=== PATIENT | female | born 1980 | race Caucasian/White ===

== ENCOUNTER 2016-10-17 20:48 | Emergency (ER) | payer BC ==
[2016-10-17 20:55] VITALS: BP 135/71
[2016-10-17] MEDS ORDERED: Prochlorperazine 10 MG/2 ML SDV IVPUSH ONE (21:13)
[2016-10-17] MEDS ORDERED: Sodium Chloride 0.9% 10 ML Syringe FLUSH PRN (21:13)
[2016-10-17] MEDS ORDERED: Ketorolac 30 MG/ML SDV IVPUSH ONE (21:13)
[2016-10-17] MEDS ORDERED: diphenhydrAMINE 50 MG/ML SDV IVPUSH ONE (21:14)
--- NOTE | 2016-10-17 21:19 | EDM.PDOC ---
ED HPI GENERAL MEDICAL PROBLEM - General Chief Complaint: Headache Stated Complaint: MIGRAINE Time Seen by Provider: 10/17/16 20:55 Source of Information: Reports: Patient History Limitations: Reports: No Limitations - History of Present Illness INITIAL COMMENTS - FREE TEXT/NARRATIVE: The patient presents with a headache. She has pain to the frontal area. She has light sensitivity. She has some tingling to her right hand. She had a history of migraines in the past. She has not had one for about 7 years. She denies nausea or vomiting. This started at 10am. Onset: Today Duration: Hour(s): (10 am this morning) Location: Reports: Head Quality: Reports: Sharp Severity: Moderate Improves with: Reports: None Worsens with: Reports: None Associated Symptoms: Reports: No Other Symptoms Headache Pain Score (Numeric/FACES): 8 - Related Data Allergies Allergy/AdvReac Type Severity Reaction Status Date / Time No Known Allergies Allergy Verified 10/17/16 20:55 Home Meds: Home Meds Escitalopram Oxalate [Lexapro] 20 mg PO DAILY 10/17/16 [History] Past Medical History Endocrine/Metabolic History: Reports: Other (See Below) Other Endocrine/Metabolic History: "Dr. Shaffer is looking into pituitary issues " Social & Family History - Tobacco Use Smoking Status *Q: Never Smoker Second Hand Smoke Exposure: No - Caffeine Use Caffeine Use: Reports: Coffee, Soda - Alcohol Use Days Per Week of Alcohol Use: 0 - Recreational Drug Use Recreational Drug Use: No ED ROS GENERAL - Review of Systems Review Of Systems: See Below Constitutional: Reports: No Symptoms HEENT: Reports: No Symptoms Respiratory: Reports: No Symptoms Cardiovascular: Reports: No Symptoms Endocrine: Reports: No Symptoms GI/Abdominal: Reports: No Symptoms : Reports: No Symptoms Musculoskeletal: Reports: No Symptoms Skin: Reports: No Symptoms Neurological: Reports: Headache, Tingling (right arm) - Physical Exam Exam: See Below Exam Limited By: No Limitations General Appearance: Alert, No Apparent Distress Ears: Normal External Exam Nose: Normal Inspection Head Exam: Atraumatic, Normocephalic Neck: Normal Inspection Respiratory/Chest: No Respiratory Distress, Lungs Clear, Normal Breath Sounds Cardiovascular: Regular Rate, Rhythm, No Edema, No Murmur GI/Abdominal: Soft, Non-Tender, No Organomegaly Neuro Exam (Abbreviated): Alert, Oriented, No Motor/Sensory Deficits Course - Vital Signs Last Recorded V/S: Last Vital Signs Temp 97.7 F 10/17/16 20:52 Pulse 69 10/17/16 20:52 Resp 18 10/17/16 20:52 BP 135/71 10/17/16 20:52 Pulse Ox 97 10/17/16 20:52 - Orders/Labs/Meds Orders: Active Orders 24 hr Category Date Time Status Peripheral IV Care [RC] . DIRECTED Care 10/17/16 21:13 Active Sodium Chloride 0.9% [Saline Flush] Med 10/17/16 21:13 Active 10 ml FLUSH ASDIRECTED PRN Peripheral IV Insertion Adult [OM.PC] Routine Oth 10/17/16 21:13 Ordered Medication Orders Sodium Chloride (Saline Flush) 10 ml FLUSH ASDIRECTED PRN PRN Reason: Keep Vein Open Last Admin: 10/17/16 21:34 Dose: 10 ml Meds: Medications Generic Name Dose Route Start Last Admin Trade Name Freq PRN Reason Stop Dose Admin Sodium Chloride 10 ml 10/17/16 21:13 10/17/16 21:34 Saline Flush FLUSH 10 ml ASDIRECTED PRN Administration Keep Vein Open Discontinued Medications Generic Name Dose Route Start Last Admin Trade Name Freq PRN Reason Stop Dose Admin Diphenhydramine HCl 50 mg 10/17/16 21:14 10/17/16 21:34 Benadryl IVPUSH 10/17/16 21:15 50 mg ONETIME ONE Administration Ketorolac Tromethamine 30 mg 10/17/16 21:13 10/17/16 21:37 Toradol IVPUSH 10/17/16 21:14 30 mg ONETIME ONE Administration Prochlorperazine Edisylate 10 mg 10/17/16 21:13 10/17/16 21:31 Compazine IVPUSH 10/17/16 21:14 10 mg ONETIME ONE Administration - Re-Assessments/Exams Free Text/Narrative Re-Assessment/Exam: 10/17/16 21:19 I have ordered an IV saline lock, compazine 10mg IV, toradol 30mg IV and benadryl 50mg IV. 10/17/16 21:58 She feels much better. I will discharge her home. Departure - Departure Time of Disposition: 22:00 Disposition: Home, Self-Care 01 Condition: good Clinical Impression: Migraine - Discharge Information Referrals: Daly Davis [employer] HEL[employer] [Primary Care Provider] - Forms: ED Department Discharge Additional Instructions: Good home and rest. Please return if you are worse. - My Orders Last 24 Hours: My Active Orders 10/17/16 21:13 Peripheral IV Care [RC] . DIRECTED Sodium Chloride 0.9% [Saline Flush] 10 ml FLUSH ASDIRECTED PRN Peripheral IV Insertion Adult [OM.PC] Routine - Assessment/Plan Last 24 Hours: My Active Orders 10/17/16 21:13 Peripheral IV Care [RC] . DIRECTED Sodium Chloride 0.9% [Saline Flush] 10 ml FLUSH ASDIRECTED PRN Peripheral IV Insertion Adult [OM.PC] Routine
== END 2016-10-17 22:11 | disposition home or self-care (01) ==
LOC: JD.ED 20:48
DX: G43.909 Migraine, unspecified, not intractable, without status migrainosus (principal)
CPT/HCPCS: 96374; 96375; 99283; J0780; J1200; J1885; J7050; 99284

== ENCOUNTER 2017-11-05 06:45 | Day surgery (SDC) | payer BC ==
[~2017-11-05 06:45] MED LIST: Lidocaine 1%/Sod Bicarbonate in NS 8.4% 1 ML Syringe IDERM PRN; Sodium Chloride 0.9% 10 ML Syringe FLUSH PRN
[2017-11-05] MEDS ORDERED: Ondansetron 4 MG/2 ML SDV ONE (07:18)
[2017-11-05] MEDS ORDERED: Propofol 200 MG/20 ML SDV ONE (07:18)
[2017-11-05] MEDS ORDERED: Midazolam 1 MG/ML 2 ML SDV ONE (07:18)
[2017-11-05] MEDS ORDERED: Rocuronium 50 MG/5 ML Vial ONE (07:18)
[2017-11-05] MEDS ORDERED: fentaNYL 250 MCG/5 ML SDV ONE (07:18)
[2017-11-05] MEDS ORDERED: Dexamethasone 4 MG/ML 5 ML MDV ONE (07:19)
[2017-11-05] MEDS ORDERED: diphenhydrAMINE 50 MG/ML SDV ONE (07:19)
[2017-11-05] MEDS ORDERED: Lidocaine 1% 4 ML ONE (07:19)
[2017-11-05] MEDS ORDERED: ceFAZolin 1 GM Vial ONE (07:19)
[2017-11-05] MEDS: Lactated Ringers 1,000 ML IV SCH ×2 (07:30→12:05)
[2017-11-05] MEDS ORDERED: Sodium Chloride 0.9% 50 ML SDV ONE (07:31)
[2017-11-05] MEDS ORDERED: Lidocaine 1% with EPINEPHrine 1:100,000 20 ML MDV ONE (07:31)
[2017-11-05] MEDS ORDERED: Bupivacaine 0.5% 30 ML SDV ONE (07:31)
[2017-11-05] MEDS ORDERED: Scopolamine 1.5 MG Transdermal Patch TOP ONE (07:32)
--- NOTE | 2017-11-05 07:35 | PCM.PREANE ---
Preanesthetic Assessment - Anesthesia/Transfusion/Family Hx Anesthesia History: Prior Anesthesia Without Reaction (slight nausea) Family History of Anesthesia Reaction: No - Review of Systems General: No Symptoms Pulmonary: No Symptoms Cardiovascular: No Symptoms Gastrointestinal: No Symptoms Neurological: No Symptoms Other: Reports: None - Physical Assessment NPO Status Date: 11/04/17 NPO Status Time: 00:00 Pulse: 63 O2 Sat by Pulse Oximetry: 97 Respiratory Rate: 16 Blood Pressure: 117/67 Temperature: 36.5 C Height: 1.6 m Weight: 78 kg ASA Class: 2 Mental Status: Alert & Oriented x3 Airway Class: Mallampati = 1 Dentition: Reports: Normal Dentition Thyro-Mental Finger Breadths: 2 Mouth Opening Finger Breadths: 3 ROM/Head Extension: Full Lungs: Clear to Auscultation, Normal Respiratory Effort Cardiovascular: Regular Rate, Regular Rhythm, No Murmurs - Lab Values: Laboratory Last Values WBC 7.39 K/mm3 (3.98-10.04) 11/04/17 08:29 RBC 4.33 M/mm3 (3.98-5.22) 11/04/17 08:29 Hgb 13.1 gm/L (11.2-15.7) 11/04/17 08:29 Hct 40.3 % (34.1-44.9) 11/04/17 08:29 MCV 93.1 fl (79.4-94.8) 11/04/17 08:29 MCH 30.3 pg (25.6-32.2) 11/04/17 08:29 MCHC 32.5 g/dl (32.2-35.5) 11/04/17 08:29 RDW Std Deviation 44.2 fL (36.4-46.3) 11/04/17 08:29 Plt Count 292 K/mm3 (182-369) 11/04/17 08:29 MPV 10.8 fl (9.4-12.3) 11/04/17 08:29 Neut % (Auto) 64.1 % (34.0-71.1) 11/04/17 08:29 Lymph % (Auto) 25.4 % (19.3-51.7) 11/04/17 08:29 Haakon % (Auto) 9.1 % (4.7-12.5) 11/04/17 08:29 Eos % (Auto) 0.9 (0.7-5.8) 11/04/17 08: Baso % (Auto) 0.5 % (0.1-1.2) 11/04/17 08: Neut # (Auto) 4.73 K/mm3 (1.56-6.13) 11/04/17 08: Lymph # (Auto) 1.88 K/mm3 (1.18-3.74) 11/04/17 08: Haakon # (Auto) 0.67 K/mm3 (0.24-0.36) H 11/04/17 08: Eos # (Auto) 0.07 K/mm3 (0.04-0.36) 11/04/17 08: Baso # (Auto) 0.04 K/mm3 (0.01-0.08) 11/04/17 08:29 Urine Color Yellow (Yellow) 11/04/17 08: Urine Appearance Clear (Clear) 11/04/17 08: Urine pH 6.5 (5.0-8.0) 11/04/17 08:29 Ur Specific [place] 1.015 (1.005-1.030) 11/04/17 08: Urine Protein Negative (Negative) 11/04/17 08: Urine Glucose (UA) Negative (Negative) 11/04/17 08: Urine Ketones Negative (Negative) 11/04/17 08:29 Urine Occult Blood Negative (Negative) 11/04/17 08: Urine Nitrite Negative (Negative) 11/04/17 08: Urine Bilirubin Negative (Negative) 11/04/17 08: Urine Urobilinogen 0.2 (0.2-1.0) 11/04/17 08:29 Ur Leukocyte Esterase Negative (Negative) 11/04/17 08: Urine HCG, Qual Negative (NEGATIVE) 11/04/17 08: Blood Type A POSITIVE 11/04/17 08: Gel Antibody Screen Negative 11/04/17 08:29 - Allergies Allergies/Adverse Reactions: Allergies Allergy/AdvReac Type Severity Reaction Status Date / Time No Known Allergies Allergy Verified 11/04/17 12:10 - Anesthesia Plan Pre-Op Medication Ordered: None - Acknowledgements Anesthesia Type Planned: General Anesthesia Pt an Appropriate Candidate for the Planned Anesthesia: Yes Alternatives and Risks of Anesthesia Discussed w Pt/Guardian: Yes Pt/Guardian Understands and Agrees with Anesthesia Plan: Yes PreAnesthesia Questionnaire HEENT History: Reports: Other (See Below) Other HEENT History: ACUTE PHARYNGITIS Respiratory History: Reports: None Gastrointestinal History: Reports: Other (See Below) 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 Shaffer is looking into pituitary issues " Hematologic History: Reports: None Immunologic History: Reports: None Oncologic (Cancer) History: Reports: None Dermatologic History: Reports: Other (See Below) Other Dermatologic History: MOLE CHANGES, NEVUS - Past Surgical History Head Surgeries/Procedures: Reports: None Cardiovascular Surgical History: Reports: Varicose Respiratory Surgical History: Reports: None GI Surgical History: Reports: None Female Surgical History: Reports: Section, Other (See Below) Other Female Surgeries/Procedures: BLADDER FISTULA REPAIR Neurological Surgical History: Reports: None Musculoskeletal Surgical History: Reports: Arthroscopic Knee Oncologic Surgical History: Reports: None Dermatological Surgical History: Reports: None - SUBSTANCE USE Smoking Status *Q: Never Smoker Tobacco Use Within Last Twelve Months: No Second Hand Smoke Exposure: No Days Per Week of Alcohol Use: 0 Number of Drinks Per Day: 1 Total Drinks Per Week: 0 Recreational Drug Use History: No - HOME MEDS Home Medications: Home Meds Escitalopram Oxalate [Lexapro] 20 mg PO DAILY 10/17/16 [History] - CURRENT (IN HOUSE) MEDS Current Meds: Current Medications Lactated Ringer's (Ringers, Lactated) 1,000 mls @ 125 mls/hr IV ASDIRECTED BLADIMIR Lidocaine/Sodium Bicarbonate (Buffered Lidocaine 1% In Ns 8.4%) 0.25 ml IDERM ONETIME PRN PRN Reason: Prior to IV Start Sodium Chloride (Saline Flush) 10 ml FLUSH ASDIRECTED PRN PRN Reason: Keep Vein Open Discontinued Medications Cefazolin Sodium (Ancef) Confirm Administered Dose 2 gm .ROUTE .STK-MED ONE Stop: 11/05/17 07:20 Dexamethasone (Dexamethasone) Confirm Administered Dose 20 mg .ROUTE .STK-MED ONE Stop: 11/05/17 07:20 Diphenhydramine HCl (Benadryl) Confirm Administered Dose 50 mg .ROUTE .STK-MED ONE Stop: 11/05/17 07:20 Fentanyl (Sublimaze) Confirm Administered Dose 250 mcg .ROUTE .STK-MED ONE Stop: 11/05/17 07:19 Lidocaine HCl (Xylocaine-Mpf 1%) Confirm Administered Dose 4 mls @ as directed .ROUTE .STK-MED ONE Stop: 11/05/17 07:20 Midazolam HCl (Versed 1 Mg/Ml) Confirm Administered Dose 2 mg .ROUTE .STK-MED ONE Stop: 11/05/17 07:19 Ondansetron HCl (Zofran) Confirm Administered Dose 4 mg .ROUTE .STK-MED ONE Stop: 11/05/17 07:19 Propofol (Diprivan 20 Ml) Confirm Administered Dose 200 mg .ROUTE .STK-MED ONE Stop: 11/05/17 07:19 Rocuronium [place] (Zemuron) Confirm Administered Dose 50 mg .ROUTE .STK-MED ONE Stop: 11/05/17 07:19
[2017-11-05] MEDS ORDERED: Lactated Ringers 1,000 ML ONE (08:07)
[2017-11-05] MEDS ORDERED: HYDROmorphone 0.5 MG/0.5 ML Syringe ONE ×2 (08:11)
[2017-11-05] MEDS ORDERED: Ketorolac 30 MG/ML SDV ONE (08:21)
[2017-11-05] MEDS ORDERED: Ondansetron 4 MG/2 ML SDV IVPUSH PRN (08:50)
[2017-11-05] MEDS ORDERED: Acetaminophen/oxyCODONE 325-5 MG Tab PO PRN (08:50)
--- NOTE | 2017-11-05 08:57 | PCM.OPNOTE ---
- General Post-Op/Procedure Note Date of Surgery/Procedure: 11/05/17 Operative Procedure(s): Total vaginal hysterectomy with bilateral salpingectomy Findings: Uterus is normal size. Ovaries were functional. Fallopian tubes were unremarkable. Pre Op Diagnosis: 1. Menorrhagia. 2. Dysmenorrhea. 3. Irregular menstrual cycles Post-Op Diagnosis: Same Anesthesia Technique: General ET Tube Other Anesthesia Type: Lidocaine quarter percent with epilocal Primary Surgeon: Sameer Zuleta Secondary Surgeon: Walt Justin Anesthesia Provider: Ismael Ruiz Legal Nurse Consultant: Dagoberto Abreu Reason Legal Nurse Consultant Was Necessary: Retraction, assistance, patient safety, quality of care Role of Legal Nurse Consultant: Retraction, assistance Fluid Replacement, Intraop: 1,800 EBL in mLs: 20 Complications: None Condition: Good Free Text/Narrative:: Surgery duration: 23 minutes Procedure: The patient was placed in supine position on the operating table. General endotracheal anesthesia was accomplished. After positioning, and adequate prep and drape, the procedure was then performed. Sterile speculum was placed in the vagina and cervix was visualized. Cervix was injected with lidocaine quarter percent with [id number] mL used. A full circumference incision was made in the cervical epithelium. The bladder was pushed well back off cervix. Posterior cul-de-sac was then entered sharply without problems. Left uterosacral was crossclamped with a Enseal vessel closure system. The left uterosacral and then the right uterosacral ligament pedicles were developed using the Enseal system. The anterior cul-de-sac was then entered without problems and the uterine vasculature, cardinal ligament and broad ligament then developed using Enseal vessel closure system. The uterus was inverted at this time and upper broad ligament fallopian tube pedicles were crossclamped with Jessica clamps. Specimen was totally removed. Both these pedicles were then secured with a Jessica stitch of #1 Vicryl. Left and right fallopian tube was normal in appearance.. Using Enseal vessel closure system each of the tubes was then removed and sent with the specimen. The Enseal vessel closure system was used to remove both ovaries. The patient was found to be hemostatically intact at this time. Vaginal cuff was sutured for hemostatic reasons with a running locked suture of 0 Monocryl from the 2 o' clock position to the 10 o'clock position posteriorly. Vaginal cuff was then closed from right to left side with a running locked suture of 0 Monocryl. Patient was returned to supine position and awakened from general endotracheal anesthesia. She tolerated the procedure was then left the operating room in satisfactory condition.
[2017-11-05] MEDS ORDERED: Ketorolac 30 MG/ML SDV IVPUSH SCH (09:00)
[2017-11-05] MEDS ORDERED: fentaNYL 100 MCG/2 ML SDV IVPUSH PRN (09:08)
[2017-11-05] MEDS ORDERED: HYDROmorphone 0.5 MG/0.5 ML SYRINGE IVPUSH PRN (09:08)
--- NOTE | 2017-11-05 09:10 | PCM.POSTAN ---
POST ANESTHESIA ASSESSMENT - MENTAL STATUS Mental Status: Somnolent - VITAL SIGNS Pulse Rate: 77 SaO2: 97 Resp Rate: 14 Blood Pressure: 112/59 Temperature: 36.6 C - RESPIRATORY Respiratory Status: Respiratory Rate WNL, Airway Patent, O2 Saturation Stable, Supplemental Oxygen - CARDIOVASCULAR CV Status: Pulse Rate WNL, Blood Pressure Stable - GASTROINTESTINAL GI Status: No Symptoms - PAIN Pain Score: 0 - POST OP HYDRATION Hydration Status: Adequate & Stable - OBSERVATIONS Free Text/Narrative:: no anesthesia complications noted
[2017-11-05 13:22] VITALS: BP 109/72
== END 2017-11-05 12:55 | disposition home or self-care (01) ==
LOC: JD.SDS 06:45
PROVIDERS: ATTEND Obstetrics & Gynecology
DX: N80.0 Endometriosis of uterus (principal); N87.9 Dysplasia of cervix uteri, unspecified; N72 Inflammatory disease of cervix uteri; N83.8 Other noninflammatory disorders of ovary, fallopian tube and broad ligament; F41.9 Anxiety disorder, unspecified; F32.9 Major depressive disorder, single episode, unspecified
CPT/HCPCS: 36415; 58262; 81003; 81025; 85025; 86850; 86900; 86901; A9270; J0690; J1100; J1170; J1200; J1885; J2001; J2250; J2405; J3010; J7120; 00944; J2704

== ENCOUNTER 2018-06-15 20:43 | Emergency (ER) | payer BC ==
[2018-06-15 20:56] VITALS: BP 124/75
--- NOTE | 2018-06-15 22:01 | EDM.PDOC ---
ED HPI GENERAL MEDICAL PROBLEM - General Chief Complaint: Lower Extremity Injury/Pain Stated Complaint: FELL ON ICE LEFT KNEE INJURIED AND RIGHT HAND Time Seen by Provider: 06/15/18 21:07 Source of Information: Reports: Patient, RN Notes Reviewed - History of Present Illness INITIAL COMMENTS - FREE TEXT/NARRATIVE: 37-year-old female slipped on the ice last evening injuring right thumb and left knee. Is sore and swollen today but the knee is giving her more difficulty. Has pain at rest but worse with any motion of the knee and especially with weightbearing. That is not getting better today so she feels like she had better have that checked out. No head neck chest hip or other pain or injury. Right Hand Pain Score (Numeric/FACES): 4 Left Knee Pain Score (Numeric/FACES): 6 - Related Data Allergies Allergy/AdvReac Type Severity Reaction Status Date / Time No Known Allergies Allergy Verified 11/05/17 07:57 Home Meds: Home Meds Escitalopram Oxalate [Lexapro] 20 mg PO DAILY 10/17/16 [History] Acetaminophen/oxyCODONE [Percocet 325-5 MG] 2 tab PO Q4H PRN tablet 11/05/17 [ Rx] Ibuprofen 600 mg PO Q4H PRN #30 tablet 11/05/17 [Rx] Past Medical History HEENT History: Reports: Other (See Below) Other HEENT History: PHARYNGITIS Respiratory History: Reports: None Gastrointestinal History: Reports: Other (See Below) Other Gastrointestinal History: 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 Shaffer is looking into pituitary issues " Hematologic History: Reports: None Immunologic History: Reports: None Oncologic (Cancer) History: Reports: None Dermatologic History: Reports: Other (See Below) Other Dermatologic History: MOLE CHANGES, NEVUS - Past Surgical History Head Surgeries/Procedures: Reports: None Cardiovascular Surgical History: Reports: Varicose Respiratory Surgical History: Reports: None GI Surgical History: Reports: None Female Surgical History: Reports: Section, Hysterectomy, Other (See Below) Other Female Surgeries/Procedures: BLADDER FISTULA REPAIR Neurological Surgical History: Reports: None Musculoskeletal Surgical History: Reports: Arthroscopic Knee Oncologic Surgical History: Reports: None Dermatological Surgical History: Reports: None Social & Family History - Tobacco Use Smoking Status *Q: Never Smoker - Caffeine Use Caffeine Use: Reports: Coffee, Soda Review of Systems - Review of Systems Review Of Systems: See Below Constitutional: Reports: No Symptoms Eyes: Reports: No Symptoms Ears: Reports: No Symptoms Nose: Reports: No Symptoms Mouth/Throat: Reports: No Symptoms Respiratory: Denies: Shortness of Breath Cardiovascular: Denies: Chest Pain GI/Abdominal: Denies: Abdominal Pain, Nausea, Vomiting Musculoskeletal: Reports: Joint Pain (Right thumb and left knee) Skin: Reports: Bruising (Small area of bruising left anterior lower knee) Neurological: Denies: Numbness, Tingling ED EXAM, GENERAL - Physical Exam Exam: See Below General Appearance: Alert, Mild Distress Eye Exam: Bilateral Eye: PERRL Nose: Normal Inspection Throat/Mouth: Normal Inspection Head: Atraumatic. No: Facial Swelling Neck: Supple Respiratory/Chest: No Respiratory Distress, Lungs Clear Extremities: Joint Swelling (There is swelling of the MCP of the right thumb with some localized tenderness medial base, pain with motion of thumb, no visible deformity), Leg Pain (There is mild tenderness of the left knee anterior and lateral aspect, mild swelling, no visible effusion, no deformity, pain with flexion and extension, knee joint is stable.), Other (Leg is otherwise nontender) Neurological: Alert, Oriented Skin Exam: Warm, Dry, Normal Color Course - Vital Signs Text/Narrative:: X-rays of thumb and knee are negative for fracture Last Recorded V/S: Last Vital Signs Temp 98.5 F 06/15/18 20:53 Pulse 88 06/15/18 20:53 Resp 18 06/15/18 20:53 BP 124/75 06/15/18 20:53 Pulse Ox 100 06/15/18 20:53 - Orders/Labs/Meds Orders: Active Orders 24 hr Category Date Time Status Fingers Thumb Rt F5 [CR] Stat Exams 06/15/18 21:14 Taken Knee Min 4V Lt [CR] Stat Exams 06/15/18 21:13 Taken Departure - Departure Time of Disposition: 21:59 Disposition: Home, Self-Care 01 Condition: Fair Clinical Impression: Contusion of left knee Qualifiers: Encounter type: initial encounter Qualified Code(s): S80.02XA - Contusion of left knee, initial encounter Left knee sprain Qualifiers: Encounter type: initial encounter Involved ligament of knee: other ligament Qualified Code(s): S83.8X2A - Sprain of other specified parts of left knee, initial encounter Sprain of right thumb Qualifiers: Encounter type: initial encounter Sprain of finger site: metacarpophalangeal joint Qualified Code(s): S63.641A - Sprain of metacarpophalangeal joint of right thumb, initial encounter - Discharge Information Instructions: Knee Sprain, Adult, [id number], Finger Sprain, Adult, Easy-to- Read, Contusion, [id number] Referrals: Daly Davis [employer]SEMBLER [Primary Care Provider] - Forms: ED Department Discharge, ED Return to Work/School Form Additional Instructions: Eduardo wrap left knee, ice packs and elevation as needed for swelling, rest leg and knee as much as possible, use crutches as needed, follow-up with your regular medical provider if not much better within 5-7 days as expected. - My Orders Last 24 Hours: My Active Orders 06/15/18 21:13 Knee Min 4V Lt [CR] Stat 06/15/18 21:14 Fingers Thumb Rt F5 [CR] Stat - Assessment/Plan Last 24 Hours: My Active Orders 06/15/18 21:13 Knee Min 4V Lt [CR] Stat 06/15/18 21:14 Fingers Thumb Rt F5 [CR] Stat
--- NOTE | 2018-06-16 07:20 | CR ---
Left knee: Four views of the left knee were obtained. Comparison: No prior knee exam. Medial and lateral joint compartments are maintained in height. No joint effusion is seen. No acute fracture or other bony abnormality is identified. Impression: 1. No abnormality is appreciated on left knee exam. Diagnostic code #1
--- NOTE | 2018-06-16 07:21 | CR ---
Right thumb: Three views of the right thumb were obtained. Comparison: No previous study. Slight lucent line with mild cortical irregularity is seen within the corner base of the distal phalanx of the thumb. This is noted on one view and is suspicious for nondisplaced fracture. No additional bony abnormality is seen. Impression: 1. Findings suspicious for nondisplaced fracture within the corner base of the distal phalanx of the right thumb. Diagnostic code #3
== END 2018-06-15 22:20 | disposition home or self-care (01) ==
LOC: JD.ED 20:43
DX: S83.8X2A Sprain of other specified parts of left knee, initial encounter (principal); S63.641A Sprain of metacarpophalangeal joint of right thumb, initial encounter; Z79.899 Other long term (current) drug therapy; W00.0XXA Fall on same level due to ice and snow, initial encounter
CPT/HCPCS: 73140-26-F5; 73140-F5; 73564-26-LT; 73564-LT; 99283

== ENCOUNTER 2019-11-29 16:47 | Inpatient (IN) | payer BC ==
--- NOTE | 2019-11-29 17:26 | EDM.PDOCBH ---
ED HPI GENERAL MEDICAL PROBLEM - General Chief Complaint: Behavioral/Psych Stated Complaint: TOOK TOO MANY PILLS Time Seen by Provider: 11/29/19 16:57 Source of Information: Reports: Patient History Limitations: Reports: No Limitations - History of Present Illness INITIAL COMMENTS - FREE TEXT/NARRATIVE: The patient presents for an overdose. She took 10 30mg cymbalta at 1530. She also took a xanax earlier in the day. She was trying to hurt herself. She knew that many would not kill her. I asked if she was trying to kill herself and she said it did cross her mind. She just wanted to rest. She has been through a lot lately. Her grandfather recently and he was COVID 19 positive and she has been quarantined from her children and friends for about 12 days. She did pass out earlier. She has no symptoms such as cough, congestion, runny nose, chest pain, shortness of breath, abdominal pain, nausea or vomiting. She has never tried to kill herself before. 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 It is the one year anniversary of her nieces . She was killed by a drunk auto carrier driver up in [place]. She recently had to give a deposition for sentencing for the drunk auto carrier driver. Her mother a few years ago around this time. She has been the one that everyone in her family turns to for help and to talk. This includes her father and siblings. She is feeling overwhelmed. She has 4 children and one of them recently graduated. Onset: Sudden Duration: Hour(s): Improves with: Reports: None Worsens with: Reports: None Associated Symptoms: Reports: No Other Symptoms Left Chest Pain Score (Numeric/FACES): 4 - Related Data Allergies Allergy/AdvReac Type Severity Reaction Status Date / Time No Known Allergies Allergy Verified 11/29/19 17:01 Home Meds: Home Meds DULoxetine [Cymbalta] 30 mg PO BEDTIME 11/29/19 [History] Past Medical History HEENT History: Reports: Other (See Below) Other HEENT History: PHARYNGITIS Respiratory History: Reports: None Gastrointestinal History: Reports: Other (See Below) Other Gastrointestinal History: GASTRIC ULCER LAMP CLEANER History: Reports: Other (See Below) Other LAMP CLEANER History: BREAST PAIN, DYSMENRRHEA, IRREGULAR MENSES, MENORRHAGIA, Musculoskeletal History: Reports: Arthritis Neurological History: Reports: Migraines Psychiatric History: Reports: Anxiety, Depression Endocrine/Metabolic History: Reports: Other (See Below) Other Endocrine/Metabolic History: "Dr. Shaffer is looking into pituitary issues" Hematologic History: Reports: None Immunologic History: Reports: None Oncologic (Cancer) History: Reports: None Dermatologic History: Reports: Other (See Below) Other Dermatologic History: MOLE CHANGES, NEVUS - Past Surgical History Head Surgeries/Procedures: Reports: None Cardiovascular Surgical History: Reports: Varicose Respiratory Surgical History: Reports: None GI Surgical History: Reports: None Female Surgical History: Reports: Section, Hysterectomy, Other (See Below) Other Female Surgeries/Procedures: BLADDER FISTULA REPAIR Neurological Surgical History: Reports: None Musculoskeletal Surgical History: Reports: Arthroscopic Knee Oncologic Surgical History: Reports: None Dermatological Surgical History: Reports: None Social & Family History - Caffeine Use Caffeine Use: Reports: Coffee, Soda ED ROS GENERAL - Review of Systems Review Of Systems: See Below Constitutional: Reports: No Symptoms HEENT: Reports: No Symptoms Respiratory: Reports: No Symptoms Cardiovascular: Reports: No Symptoms Endocrine: Reports: No Symptoms GI/Abdominal: Reports: No Symptoms : Reports: No Symptoms Musculoskeletal: Reports: No Symptoms ED EXAM, BEHAVIORAL HEALTH - Physical Exam Exam: See Below Exam Limited By: No Limitations General Appearance: Alert, No Apparent Distress Ears: Normal External Exam Nose: Normal Inspection Head: Atraumatic, Normocephalic Neck: Normal Inspection Respiratory/Chest: No Respiratory Distress, Lungs Clear, Normal Breath Sounds Cardiovascular: Regular Rate, Rhythm, No Edema, No Murmur GI/Abdominal: Normal Bowel Sounds, Soft, Non-Tender, No Organomegaly Back Exam: Normal Inspection Extremities: Normal Inspection COURSE, BEHAVIORAL HEALTH COMP - Course Vital Signs: Last Vital Signs Temp 98.1 F 11/29/19 16:56 Pulse 77 11/29/19 16:56 Resp 18 11/29/19 16:56 BP 127/80 11/29/19 16:56 Pulse Ox 100 11/29/19 16:56 Orders, Labs, Meds: Active Orders 24 hr Category Date Time Status Cardiac Monitoring [RC] . DIRECTED Care 11/29/19 17:13 Active Peripheral IV Care [RC] . DIRECTED Care 11/29/19 17:17 Active Sodium Chloride 0.9% [Saline Flush] Med 11/29/19 17:17 Active 10 ml FLUSH ASDIRECTED PRN Peripheral IV Insertion Adult [OM.PC] Routine Oth 11/29/19 17:17 Ordered Medication Orders Sodium Chloride (Saline Flush) 10 ml FLUSH ASDIRECTED PRN PRN Reason: Keep Vein Open Last Admin: 11/29/19 17:31 Dose: 10 ml Documented by: AIDAN Laboratory Tests 11/29/19 11/29/19 11/29/19 Range/Units 17:20 17:20 17:20 WBC 9.54 (3.98-10.04) K/mm3 RBC 4.17 (3.98-5.22) M/mm3 Hgb 12.8 (11.2-15.7) gm/dl Hct 38.6 (34.1-44.9) % MCV 92.6 (79.4-94.8) fl MCH 30.7 (25.6-32.2) pg MCHC 33.2 (32.2-35.5) g/dl RDW Std Deviation 44.6 (36.4-46.3) fL Plt Count 327 (182-369) K/mm3 MPV 10.4 (9.4-12.3) fl Neut % (Auto) 71.4 H (34.0-71.1) % Lymph % (Auto) 20.9 (19.3-51.7) % Alcorn % (Auto) 6.5 (4.7-12.5) % Eos % (Auto) 0.5 L (0.7-5.8) Baso % (Auto) 0.6 (0.1-1.2) % Neut # (Auto) 6.81 H (1.56-6.13) K/mm3 Lymph # (Auto) 1.99 (1.18-3.74) K/mm3 Alcorn # (Auto) 0.62 H (0.24-0.36) K/mm3 Eos # (Auto) 0.05 (0.04-0.36) K/mm3 Baso # (Auto) 0.06 (0.01-0.08) K/mm3 Sodium 140 (136-145) mEq/L Potassium 3.8 (3.5-5.1) mEq/L Chloride 104 (98-107) mEq/L Carbon Dioxide 26 (21-32) mEq/L Anion Gap 13.8 (5-15) BUN 12 (7-18) mg/dL Creatinine 1.1 H (0.55-1.02) mg/dL Est Cr Clr Drug Dosing 53.77 mL/min Estimated GFR (MDRD) 55 (>60) mL/min BUN/Creatinine Ratio 10.9 L (14-18) Glucose 107 H (74-106) mg/dL Calcium 8.8 (8.5-10.1) mg/dL Total Bilirubin 0.3 (0.2-1.0) mg/dL AST 14 L (15-37) U/L ALT 21 (14-59) U/L Alkaline Phosphatase 72 (46-116) U/L Total Protein 7.5 (6.4-8.2) g/dl Albumin 3.7 (3.4-5.0) g/dl Globulin 3.8 gm/dL Albumin/Globulin Ratio 1.0 (1-2) TSH 3rd Generation 2.712 (0.358-3.74) uIU/mL HCG, Qual Negative (NEGATIVE) Salicylates (2.8-20) mg/dL Urine Opiates Screen (MGXFTQ=293) Ur Buprenorphine Scrn (CUTOFF=10) Ur Oxycodone Screen (QHN3LG=831) Urine Methadone Screen (YZWGSO=263) Ur Propoxyphene Screen (LPEJAN=242) Acetaminophen 0 L (10-30) ug/mL Ur Barbiturates Screen (GGUMBL=803) Ur Tricyclics Screen (TADPPO=399) Ur Phencyclidine Scrn (CUTOFF=25) Ur Amphetamine Screen (OKMCXG=858) U Methamphetamines Scrn (YUICKO=755) U Benzodiazepines Scrn (YIUUGG=507) U Cocaine Metab Screen (QNLGCY=774) U Marijuana (THC) Screen (CUTOFF=50) Ethyl Alcohol 0.00 (0.00) gm% SARS-CoV-2 RNA (RT-PCR) (NEGATIVE) 11/29/19 11/29/19 11/29/19 Range/Units 17:20 17:48 17:55 WBC (3.98-10.04) K/mm3 RBC (3.98-5.22) M/mm3 Hgb (11.2-15.7) gm/dl Hct (34.1-44.9) % MCV (79.4-94.8) fl MCH (25.6-32.2) pg MCHC (32.2-35.5) g/dl RDW Std Deviation (36.4-46.3) fL Plt Count (182-369) K/mm3 MPV (9.4-12.3) fl Neut % (Auto) (34.0-71.1) % Lymph % (Auto) (19.3-51.7) % Alcorn % (Auto) (4.7-12.5) % Eos % (Auto) (0.7-5.8) Baso % (Auto) (0.1-1.2) % Neut # (Auto) (1.56-6.13) K/mm3 Lymph # (Auto) (1.18-3.74) K/mm3 Alcorn # (Auto) (0.24-0.36) K/mm3 Eos # (Auto) (0.04-0.36) K/mm3 Baso # (Auto) (0.01-0.08) K/mm3 Sodium (136-145) mEq/L Potassium (3.5-5.1) mEq/L Chloride (98-107) mEq/L Carbon Dioxide (21-32) mEq/L Anion Gap (5-15) BUN (7-18) mg/dL Creatinine (0.55-1.02) mg/dL Est Cr Clr Drug Dosing mL/min Estimated GFR (MDRD) (>60) mL/min BUN/Creatinine Ratio (14-18) Glucose (74-106) mg/dL Calcium (8.5-10.1) mg/dL Total Bilirubin (0.2-1.0) mg/dL AST (15-37) U/L ALT (14-59) U/L Alkaline Phosphatase (46-116) U/L Total Protein (6.4-8.2) g/dl Albumin (3.4-5.0) g/dl Globulin gm/dL Albumin/Globulin Ratio (1-2) TSH 3rd Generation (0.358-3.74) uIU/mL HCG, Qual (NEGATIVE) Salicylates 0.7 L (2.8-20) mg/dL Urine Opiates Screen Negative (ZKRNFC=503) Ur Buprenorphine Scrn Negative (CUTOFF=10) Ur Oxycodone Screen Negative (BGY4NY=044) Urine Methadone Screen Negative (VRFKGH=178) Ur Propoxyphene Screen Negative (WPBEFF=632) Acetaminophen (10-30) ug/mL Ur Barbiturates Screen Negative (XWVRBQ=075) Ur Tricyclics Screen Negative (GQZIAD=430) Ur Phencyclidine Scrn Negative (CUTOFF=25) Ur Amphetamine Screen Negative (ZOJRIF=237) U Methamphetamines Scrn Negative (XCTUZT=219) U Benzodiazepines Scrn Negative (XNSQEF=854) U Cocaine Metab Screen Negative (YIPNFN=857) U Marijuana (THC) Screen Negative (CUTOFF=50) Ethyl Alcohol (0.00) gm% SARS-CoV-2 RNA (RT-PCR) Negative (NEGATIVE) Medications Generic Name Dose Route Start Last Admin Trade Name Freq PRN Reason Stop Dose Admin Sodium Chloride 10 ml 11/29/19 17:17 11/29/19 17:31 Saline Flush FLUSH 10 ml ASDIRECTED PRN Administration Keep Vein Open Re-Assessment/Re-Exam: I ordered an IV saline lock, labs and a urine drug screen. 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 They recommended observing her for 6 to 10 hours. Her CBC looks good. Her COVID 19 is negative. Her HCG and salicylates are negative. The UDS was negative. Her CMP was negative. Her acetaminophen is negative. She feels good. I feel she needs to be admitted. I will call Dr Arita and get her admitted. Departure - Departure Time of Disposition: 19:00 Disposition: Admitted As Inpatient 65 Condition: Fair Clinical Impression: Suicidal ideation Drug overdose Qualifiers: Encounter type: initial encounter Injury intent: intentional self-harm Qualified Code(s): T50.902A - Poisoning by unspecified drugs, medicaments and biological substances, intentional self-harm, initial encounter - Discharge Information Referrals: Daly Davis NP [Primary Care Provider] - Forms: ED Department Discharge Sepsis Event Note (ED) - Evaluation Sepsis Screening Result: No Definite Risk - Focused Exam Vital Signs: Vital Signs Temp Pulse Resp BP Pulse Ox 11/29/19 16:56 98.1 F 77 18 127/80 100 - My Orders Last 24 Hours: My Active Orders 11/29/19 17:13 Cardiac Monitoring [RC] . DIRECTED 11/29/19 17:17 Peripheral IV Care [RC] . DIRECTED Sodium Chloride 0.9% [Saline Flush] 10 ml FLUSH ASDIRECTED PRN Peripheral IV Insertion Adult [OM.PC] Routine - Assessment/Plan Last 24 Hours: My Active Orders 11/29/19 17:13 Cardiac Monitoring [RC] . DIRECTED 11/29/19 17:17 Peripheral IV Care [RC] . DIRECTED Sodium Chloride 0.9% [Saline Flush] 10 ml FLUSH ASDIRECTED PRN Peripheral IV Insertion Adult [OM.PC] Routine
[2019-11-29] MEDS: Sodium Chloride 0.9% 10 ML Syringe FLUSH PRN (17:31)
[2019-11-29 20:28] VITALS: PULSE 80
[2019-11-30 12:16] VITALS: BP 122/82
[2019-11-30] MEDS: Sodium Chloride 0.9% 10 ML Syringe FLUSH PRN (12:27)
== END 2019-11-30 14:30 | disposition home or self-care (01) | DRG 812 ==
LOC: JD.ED 16:47 → JD.ICU 19:29 → OBSVTOIN 11-30 14:01
PROVIDERS: ADMIT Pediatrics; ATTEND Pediatrics
DX: T43.212A Poisoning by selective serotonin and norepinephrine reuptake inhibitors, intentional self-harm, initial encounter (principal); Z20.828 Contact with and (suspected) exposure to other viral communicable diseases; M19.90 Unspecified osteoarthritis, unspecified site; G43.909 Migraine, unspecified, not intractable, without status migrainosus; F41.9 Anxiety disorder, unspecified; F32.9 Major depressive disorder, single episode, unspecified
CPT/HCPCS: 36415; 80053; 80306; 80307; 84443; 84703; 85025; 99285; A9270-GY; G0378; U0002

== ENCOUNTER 2020-11-12 12:57 | Emergency (ER) | payer BC, OTHER ==
[2020-11-12 13:05] VITALS: BP 131/78; PULSE 93
[2020-11-12] MEDS ORDERED: Lidocaine 1% with EPINEPHrine 1:100,000 10 ML MDV INJECT ONE (13:18)
[2020-11-12] MEDS ORDERED: Diphtheria,Pertussis(Acell),Tetanus Vaccine 0.5 ML Syringe IM ONE (13:18)
--- NOTE | 2020-11-12 13:24 | EDM.PDOC ---
ED HPI GENERAL MEDICAL PROBLEM - General Chief Complaint: Laceration Stated Complaint: R FOOT LAC Time Seen by Provider: 11/12/20 13:09 Source of Information: Reports: Patient, RN Notes Reviewed History Limitations: Reports: No Limitations - History of Present Illness INITIAL COMMENTS - FREE TEXT/NARRATIVE: Patient is a 40-year-old female who presents to the ER for a foot laceration. Patient notes that she was removing tin sheets off of her outdoor shed, and she stepped back, while wearing sandals and ended up lacerating the posterior aspect of her right heel. This is in a horizontal distribution, and measures roughly 3 cm in length. Patient does not believe she is up-to-date on her tetanus vaccine. Patient denies any other sick-like symptoms, fever/chills, cough/sh ortness of breath, nausea/vomiting/diarrhea. Patient denies any past medical history that is pertinent to today's visit. Right Foot Pain Score (Numeric/FACES): 7 - Related Data Allergies Allergy/AdvReac Type Severity Reaction Status Date / Time No Known Allergies Allergy Verified 11/12/20 13:06 Home Meds: Home Meds . [No Known Home Meds] 11/12/20 [History] Past Medical History HEENT History: Reports: Other (See Below) Other HEENT History: PHARYNGITIS Gastrointestinal History: Reports: PUD, Other (See Below) MOCCASIN SEWER History: Reports: Other (See Below) Other MOCCASIN SEWER History: BREAST PAIN, DYSMENORRHEA, IRREGULAR MENSES, MENORRHAGIA, Musculoskeletal History: Reports: Arthritis Neurological History: Reports: Migraines Psychiatric History: Reports: Anxiety, Depression Endocrine/Metabolic History: Reports: Obesity/BMI 30+, Other (See Below) Other Endocrine/Metabolic History: "Dr. Shaffer is looking into pituitary issues" Dermatologic History: Reports: Other (See Below) Other Dermatologic History: MOLE CHANGES, NEVUS - Past Surgical History Cardiovascular Surgical History: Reports: Varicose Female Surgical History: Reports: Section, Hysterectomy, Other (See Below) Other Female Surgeries/Procedures: BLADDER FISTULA REPAIR Musculoskeletal Surgical History: Reports: Arthroscopic Knee Social & Family History - Family History Family Medical History: No Pertinent Family History - Tobacco Use Tobacco Use Status *Q: Never Tobacco User Second Hand Smoke Exposure: No - Caffeine Use Caffeine Use: Reports: Coffee, Soda - Recreational Drug Use Recreational Drug Use: No ED ROS GENERAL - Review of Systems Review Of Systems: Comprehensive ROS is negative, except as noted in HPI. ED EXAM, SKIN/RASH Exam: See Below Exam Limited By: No Limitations General Appearance: Alert, WD/WN, No Apparent Distress Respiratory/Chest: No Respiratory Distress, Lungs Clear, Normal Breath Sounds, No Accessory Muscle Use, Chest Non-Tender Cardiovascular: Normal Peripheral Pulses, Regular Rate, Rhythm, No Edema Peripheral Pulses: 2+: Dorsalis Pedis (L), Dorsalis Pedis (R) Extremities: Normal Range of Motion, Normal Capillary Refill Neurological: Alert, Oriented, Normal Cognition, No Motor/Sensory Deficits Psychiatric: Normal Affect, Normal Mood Skin: Warm, Dry, Normal Color, No Rash, Wound/Incision (3 cm linear laceration to the posterior aspect of the patient's right heel, this is in a horizontal distribution. Not actively bleeding at this time) Location, Skin: Lower Extremity, Right ED SKIN PROCEDURES - Laceration/Wound Repair Right Posterior Foot Appearance: Subcutaneous, Linear, Clean Distal NVT: Neuro & Vascular Intact, No Tendon Injury Anesthetic Type: Local Local Anesthesia - Lidocaine (Xylocaine): 1% with EPI Local Anesthetic Volume: 4cc Skin Prep: Chlorhexidine (Hibiciens), Saline Exploration/Debridement/Repair: Wound Explored, In a Bloodless Field, Explored to Base, No Foreign Material Found Closed with: Sutures Lac/Wound length In cm: 3 Suture Size: 3-0 # of Sutures: 6 Suture Type: Prolene, Interrupted, Simple Sterile Dressing Applied: Nurse Tetanus Status Addressed: Yes Complications: No Course - Vital Signs Last Recorded V/S: Last Vital Signs Temp 96.9 F 11/12/20 13:05 Pulse 93 11/12/20 13:05 Resp 18 11/12/20 13:05 BP 131/78 11/12/20 13:05 Pulse Ox 99 11/12/20 13:05 - Orders/Labs/Meds Orders: Active Orders 24 hr Category Date Time Status Vaccines to be Administered [RC] PER UNIT ROUTINE Care 11/12/20 13:18 Ordered Meds: Medications Discontinued Medications Generic Name Dose Route Start Last Admin Trade Name Freq PRN Reason Stop Dose Admin Diphtheria/Tetanus/Acell Pertussis 0.5 ml 11/12/20 13:18 11/12/20 14:14 Diphtheria,Pertussis(Acell),Tetanus Vaccine 0.5 Ml Syringe IM 11/12/20 13:19 0.5 ml .ONCE ONE Administration Lidocaine/Epinephrine 10 ml 11/12/20 13:18 11/12/20 14:14 Lidocaine 1% With Epinephrine 1:100,000 10 Ml Mdv INJECT 11/12/20 13:19 10 ml ONETIME ONE Administration Departure - Departure Time of Disposition: 13:25 Disposition: Home, Self-Care 01 Condition: Good Clinical Impression: Laceration of foot Qualifiers: Encounter type: initial encounter Laterality: right Qualified Code(s): S91.311A - Laceration without foreign body, right foot, initial encounter - Discharge Information *PRESCRIPTION DRUG MONITORING PROGRAM REVIEWED*: No *COPY OF PRESCRIPTION DRUG MONITORING REPORT IN PATIENT FANTASMA: No Instructions: Sutures, Cecil, or Adhesive Wound Closure, [id number] Referrals: Daly Davis STRATIGRAPHY TEACHER [Primary Care Provider] - Forms: ED Department Discharge Additional Instructions: You have been evaluated in the ED for your laceration. Sutures will need to stay in for 14 days. You may return to the ED or any clinic for removal. Please keep this area clean and dry, you may cleanse with regular soap and water. No vigorous scrubbing. Please try to avoid submerging the affected area in water for prolonged periods of time until the sutures are removed. Watch out for signs of infection like increased redness, swelling, pain at the laceration site, or if you should develop any fevers or chills. Please return to ED if your symptoms change or worsen. Sepsis Event Note (ED) - Evaluation Sepsis Screening Result: No Definite Risk - Focused Exam Vital Signs: Vital Signs Temp Pulse Resp BP Pulse Ox 11/12/20 13:05 96.9 F 93 18 131/78 99 - My Orders Last 24 Hours: My Active Orders 11/12/20 13:18 Vaccines to be Administered [RC] PER UNIT ROUTINE - Assessment/Plan Last 24 Hours: My Active Orders 11/12/20 13:18 Vaccines to be Administered [RC] PER UNIT ROUTINE
== END 2020-11-12 14:25 | disposition home or self-care (01) ==
LOC: JD.ED 12:57
DX: S91.311A Laceration without foreign body, right foot, initial encounter (principal); E66.9 Obesity, unspecified; Z68.32 Body mass index [BMI] 32.0-32.9, adult; Z23 Encounter for immunization; W26.8XXA Contact with other sharp object(s), not elsewhere classified, initial encounter
CPT/HCPCS: 12001; 12002; 90471; 90715; 99282; 99282-25

== ENCOUNTER 2021-06-10 10:18 | Emergency (ER) | payer BC, OTHER ==
[2021-06-10 10:38] VITALS: BP 135/85; PULSE 95
[2021-06-10] MEDS ORDERED: Sodium Chloride 0.9% 1,000 ML IV ONE (10:43)
[2021-06-10] MEDS ORDERED: HYDROmorphone 0.5 MG/0.5 ML Syringe IVPUSH ONE (10:56)
[2021-06-10] MEDS ORDERED: Metoclopramide 10 MG/2 ML SDV IVPUSH ONE (10:56)
[2021-06-10] MEDS ORDERED: Ketorolac 30 MG/ML SDV IVPUSH ONE (10:56)
== END 2021-06-10 12:54 | disposition home or self-care (01) ==
LOC: JD.ED 10:18
DX: G43.909 Migraine, unspecified, not intractable, without status migrainosus (principal); E66.9 Obesity, unspecified; Z68.32 Body mass index [BMI] 32.0-32.9, adult
CPT/HCPCS: 96374; 96375; 99283; J1170; J1885; J2765; J7030